=== PATIENT | female | born 1950 | race Caucasian/White ===

== ENCOUNTER → 2017-07-09 | Outpatient (CLI) | payer MEDICARE ==
[~2017-07-09] MED LIST: ACIP20TA19 PO; ALEN70 PO; ALIG4CAP PO; ALL220TA PO; ALLE24TA PO; ASPI-110 PO; ASPI81 PO; ATEN1TAB73 PO; ATEN25TA PO; ATOR10 PO; ATOR10TA15 PO; B COTAB3 PO; CITRTAB7 PO; CRAN500C2 PO; ESTR42.5V VAGINAL; FEXO180 PO; FISH1000 PO; FLUT50SP EACH NARE; GLUC500C56 PO; GLUCTAB6 PO; LEVO1TAB50 PO; MUCI30TA2 PO; NEXI40CA PO; PROG100C PO; STOO100C PO; TAB-TAB PO; TRIA37.512 PO; TRIA37.53 PO; TRIEST PO; VITA-98 PO; VITA1000 PO; VITA100T54 PO; VITA500T83 PO; [UNRECOGNIZED DRUG - CODE] PO; [UNRECOGNIZED DRUG - CODE] SL
[2017-07-09 14:06] LABS: BLOOD, URINE NEG (NEG); COMMENT (UR) CULT NOT INDICATED; CULTURE IF INDICATED CULT NOT INDICATED; GLUCOSE,URINE NEG (NEG); KETONE, URINE NEG (NEG); NITRITE,URINE NEG (NEG); PH, URINE 7.5 (5.0-8.5); URINE COLOR YELLOW (YELLW/STRAW)
== END ==
LOC: CPRE 13:21
PROVIDERS: ATTEND Obstetrics & Gynecology
DX: Z01.812 Encounter for preprocedural laboratory examination (principal); R93.8 Abnormal findings on diagnostic imaging of other specified body structures
CPT/HCPCS: 81001

== ENCOUNTER → 2017-07-15 | Day surgery (SDC) | payer MEDICARE ==
[~2017-07-15] VITALS: Ht 157.5 cm; Wt 68.2 kg
[~2017-07-15] MED LIST changes: +ACETAMINOPHEN 1000 MG/100 ML 100 ML IV ONE; +APREPITANT 40 MG CAP ONE; +CHLORHEXIDINE GLUCONATE 2 % 1 PACK (2 CLOTHS) TOPICAL PRN; +DO NOT ADM ANY ANTICOAGULANT DRUGS PRN; +FAMOTIDINE 20 MG/2 ML VIAL ONE; +INSULIN HUMAN REGULAR 1,000 UNITS/10 ML VIAL SQ PRN; +KETOROLAC TROMETHAMINE 60 MG/2 ML (IM) VIAL IM ONE; +KETOROLAC TROMETHAMINE 60 MG/2 ML (IM) VIAL IM PRN; +LACTATED RINGER'S 1000 ML IV PRN; +METOPROLOL TARTRATE 25 MG TAB PO PRN; +MIDAZOLAM HCL 2 MG/2 ML VIAL ONE; +ONDANSETRON HCL 4 MG/2 ML VIAL IV PUSH ONE; +ONDANSETRON HCL 4 MG/2 ML VIAL IV PUSH PRN; +POVIDONE IODINE 5% (ANTISEPSIS KIT) 4 APPLICATIONS EACH NARE PRN; +PROPOFOL 200 MG/20 ML AMP IV ONE; +SODIUM CHLORID 0.9% 500 ML IV PRN; +ceFAZolin 2 GM PREMIX 50 ML IV SCH; +oxyCODONE/ACETAMINOPHEN 5 MG/325 MG TAB PO PRN
[2017-07-15 10:30] VITALS: BP 100/60; PULSE 69; RESP 20; TEMP 98.2; O2SAT 95
--- NOTE | 2017-07-16 22:35 | MP ---
cc: VINI FLORES DATE OF SURGERY: 07/15/2017 PREOPERATIVE DIAGNOSIS: Postmenopausal bleeding, thickened endometrium. POSTOPERATIVE DIAGNOSIS: Postmenopausal bleeding, thickened endometrium. OPERATION: Examination under anesthesia, hysteroscopy, fractional dilation and curettage. SURGEON: Dr. Flores. ANESTHESIA: General, via LMA. (Dr. Alberto). FLUIDS: 400 cc Crystalloid ESTIMATED BLOOD LOSS: 5 cc URINE OUTPUT: 100 cc clear yellow on straight cath prior to procedure. FINDINGS: Uterus was approximately 6 to 8 weeks in size. No adnexal masses palpable. At hysteroscopy, two polyps were noted, benign appearing. PROCEDURE: The patient was taken to the operating room where general anesthesia was found to be adequate. She was then prepped and draped in the normal sterile fashion in the dorsolithotomy position. The urinary bladder was emptied of urine using sterile technique. A weighted speculum was placed in the vagina. A single-tooth tenaculum was applied to the anterior lip of the cervix. The cervix was dilated with Yvan dilators, sizes 9 through 18. The uterus sounded to approximately 8 cm. Hysteroscopy was performed with less than 60 cc of saline. The tubal ostia were visualized. An anterior and posterior benign appearing polyp was noted. Atrophic endometrium was noted. The hysteroscope was removed and endocervical curettage was performed sharply and sent to pathology, and then an endometrial curettage was performed sharply and sent to pathology. Polyp forceps were used to remove the anterior polyp. This tissue was sent to pathology with the endometrial curettage. Hemostasis was noted. The instruments were removed from the vagina. Sponge, lap, needle and instrument counts were correct. The patient was awakened from anesthesia and transferred to the Recovery Room in stable condition. MD YOAN Dobson/SARAH /9:29 AM /10:12 PM [id number]
== END | disposition home or self-care (01) ==
LOC: HSDC 06:20
PROVIDERS: ATTEND Obstetrics & Gynecology
DX: N84.0 Polyp of corpus uteri (principal); N95.0 Postmenopausal bleeding; R93.8 Abnormal findings on diagnostic imaging of other specified body structures; I10 Essential (primary) hypertension; E78.00 Pure hypercholesterolemia, unspecified; K21.9 Gastro-esophageal reflux disease without esophagitis; G51.0 Bell's palsy; Z79.82 Long term (current) use of aspirin; Z79.899 Other long term (current) drug therapy
CPT/HCPCS: 00952; 58558; 86850; 86900; 86901; 88305; J0131; J0690; J1885; J2250; J2405; J3010; J7120; J8501